=== PATIENT | male | born 1955 | race Two or more races ===

== ENCOUNTER 2025-10-06 13:49 | Observation (INO) | payer OTHER ==
[~2025-10-06] VITALS: Ht 172.7 cm; Wt 100.0 kg
[2025-10-06 13:54] VITALS: TEMP 98.1
[2025-10-06 15:33] LABS: Hematocrit 49.8 % (41.0-53.0); Hemoglobin 16.9 g/dL (13.5-17.5); Mean Corpuscular Hemoglobin 30.2 pg (28.0-32.0); Mean Corpuscular Volume 88.8 fL (80.0-100.0); Nucleated Red Blood Cells % 0.1 %
[2025-10-06 15:40] LABS: Chloride 98 mmol/L (98-107); Potassium 3.9 mmol/L (3.5-5.1)
[2025-10-06 15:41] LABS: Anion Gap 10 (5-15); Carbon Dioxide 22 mmol/L (20-31); Sodium 130 mmol/L (136-145)
[2025-10-06 15:42] LABS: Calcium 9.6 mg/dL (8.7-10.4)
[2025-10-06 15:47] LABS: BUN/Creatinine Ratio 9.5 (10.0-20.0); Blood Urea Nitrogen 7 mg/dL (9-23); Glucose 303 mg/dL (74-106)
[2025-10-06 15:59] VITALS: O2SAT 94
[2025-10-06 15:59] LABS: Urine Protein, UAD Negative (Negative)
[2025-10-06] MEDS: ONDANSETRON HCL 4 MG/2 ML VIAL IV ONE (15:59)
[2025-10-06] MEDS: MORPHINE SULFATE 4 MG/ML SYR/VIAL IV ONE (16:01)
[2025-10-06] MEDS: IOHEXOL 300 MG/ML 100ML BOTTLE IJ ONE (16:09)
--- NOTE | 2025-10-06 16:50 | DVH ---
Indication: L Testicular pain Technique: CT axial images of the abdomen and pelvis are obtained with intravenous contrast. Coronal and sagittal reformats were obtained. Radiation Dose Information: CTDI volume is 19 mGy. Dose-length product is 1139 mGy*cm Comparison: None FINDINGS: Lung bases demonstrate atelectasis. Adrenal glands, spleen, pancreas unremarkable. Hepatic steatosis. No CT evidence for cholelithiasis. No hydronephrosis. Stomach relatively nondistended. Small bowel loops are normal in caliber. Duodenal diverticulum. Colonic diverticular disease. Normal appendix. 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 Bladder partially distended. No free pelvic fluid. Prostate measures 5.8 cm transversely. No inguinal lymphadenopathy. Moderate bilateral sacroiliac degenerative joint disease. Moderate bilateral sacroiliac degenerative joint disease. Left scrotal region soft tissue stranding incompletely characterized IMPRESSION: Left scrotal region soft tissue stranding, incompletely characterized. Recommend scrotal ultrasound to further characterize given the history of left testicular pain. Colonic diverticular disease. Atherosclerotic disease. Other findings as described.
[2025-10-06 17:20] VITALS: BP 128/77; PULSE 89; RESP 16
--- NOTE | 2025-10-06 17:24 | ED.PDOC ---
General HPI Comments This is a pleasant 69-year-old male that presents with a atraumatic left-sided testicular pain. The patient reports he noticed the swelling about a week ago. Initially small, now it has grown significantly particularly last night and in his now causing severe pain. Patient describes it as "a big thing the side of my balls" in his unsure if it is a possible abscess or a cyst or something else. The pain is severe enough to impact his mobility making it difficult for him to ambulate at this time. He needs assistance from getting up and out of the bed due to the pain. Patient reports the pain is localized in his nonradiating. Patient denies any abdominal pain. Denies any dysuria urgency frequency hematuria. Able to have normal bowel movements. Denies any history of testicular cancer at this time Chief Complaint: Testicle Pain Time Seen by MD: 14:51 Reviewed notes: Nurses Notes, Medications, Allergies Allergies: Coded Allergies: Acetaminophen (Verified Allergy, Unknown, 10/06/25) Oxycodone (Verified Allergy, Unknown, 10/06/25) Information Source: Patient Mode of Arrival: Wheelchair Psychiatric: reports: depression All Other Systems: Reviewed and Negative (PER HPI) Physical Exam General Appearance: No Apparent Distress, Normal HEENT: Normal ENT Inspection, Pharynx Normal, TMs Normal Neck: Full Range of Motion, Non-Tender, Normal, Normal Inspection Respiratory: Chest Non-Tender, Lungs Clear, No Accessory Muscle Use, No Respiratory Distress, Normal Breath Sounds Cardiovascular: No Edema, No JVD, No Murmur, No Gallop, Normal Peripheral Pulses, Regular Rate/Rhythm Breast Exam: Deferred Gastrointestinal: No Organomegaly, Non Tender, No Pulsatile Mass, Normal Bowel Sounds, Soft Genitalia: Deferred Pelvic: Deferred Rectal: Deferred Extremities: No calf tenderness, Normal capillary refill, Normal inspection, Normal range of motion, Non-tender, No pedal edema Musculoskeletal : Apperance: Normal Neurologic: Alert, 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 Was a procedure done?: No Images 1 - Noticeable swelling the proximally 4 x 4 cm the left inguinal region. Mild yellow purulent discharge is noted. The area is tender to palpation. Unable to fully examined due to pain. No noticeable rashes. Penile area appears normal. No erythema discharge etc. Differential Diagnosis Kidney stone (Female): Other Urinary Problem (Male): Epididymitis, Prostatitis, Plelonephritis, Urethritis, Urinary Retention, Urolithiasis, UTI, Other X-Ray, Labs, Meds, VS Vital Signs Date Time Temp Pulse Resp B/P (MAP) Pulse Ox O2 Delivery O2 Flow Rate FiO2 10/06/25 16:01 90 16 138/79 10/06/25 15:59 90 16 138/79 (98) 94 10/06/25 13:54 98.1 100 18 157/72 96 98.1 Lab Test 10/06/25 15:48 10/06/25 15:15 Range/Units Urine Color Light-yellow Yellow Urine Clarity Clear Clear Urine pH 5.5 5.0-9.0 Urine Specific [place] 1.037 H 1.001-1.035 Urine Protein Negative Negative Urine Ketones Negative Negative Urine Blood Negative Negative /uL Urine Nitrite Negative Negative Urine Bilirubin Negative Negative Urine Urobilinogen Normal Negative mg/dL Urine Leukocyte Esterase Negative Negative /uL Urine RBC 1 0 - 3 /hpf Urine Microscopic WBC < 1 0-3 /HPF Urine Squamous Epithelial Cells None seen <5 /hpf Urine Bacteria None seen None Seen /hpf Urine Glucose 4+ H Normal mg/dL White Blood Count 18.4 H 4.4-10.8 10^3/uL Red Blood Count 5.60 4.5-5.90 10^6/uL Hemoglobin 16.9 13.5-17.5 g/dL Hematocrit 49.8 41.0-53.0 % Mean Corpuscular Volume 88.8 80.0-100.0 fL Mean Corpuscular Hemoglobin 30.2 28.0-32.0 pg Mean Corpuscular Hemoglobin Concent 34.0 32.0-36.0 g/dL Red Cell Distribution Width 14.7 H 11.8-14.3 % Platelet Count 293 140-450 10^3/uL Mean Platelet Volume 8.1 6.9-10.8 fL Neutrophils (%) (Auto) 78.3 37.0-80.0 % Lymphocytes (%) (Auto) 10.1 10.0-50.0 % Monocytes (%) (Auto) 10.8 0.0-12.0 % Eosinophils (%) (Auto) 0.2 0.0-7.0 % Basophils (%) (Auto) 0.6 0.0-2.0 % Neutrophils # (Auto) 14.4 H 1.6-8.6 10 ^3/uL Lymphocytes # (Auto) 1.9 0.4-5.4 10 ^3/uL Monocytes # (Auto) 2.0 H 0-1.3 10 ^3/uL Eosinophils # (Auto) 0 0-0.8 10 ^3/uL Basophils # (Auto) 0.1 0-0.2 10 ^3/uL Nucleated Red Blood Cells 0.1 % Erythrocyte Sedimentation Rate 22 H 0-20 mm/hr Sodium Level 130 L 136-145 mmol/L Potassium Level 3.9 3.5-5.1 mmol/L Chloride Level 98 98-107 mmol/L Carbon Dioxide Level 22 20-31 mmol/L Anion Gap 10 5-15 Blood Urea Nitrogen 7 L 9-23 mg/dL Creatinine 0.74 0.700-1.30 mg/dL Glomerular Filtration Rate Calc 99 >90 mL/min BUN/Creatinine Ratio 9.5 L 10.0-20.0 Serum Glucose 303 H 74-106 mg/dL Lactic Acid Level 2.0 0.4-2.0 mmol/L Calcium Level 9.6 8.7-10.4 mg/dL C-Reactive Protein High Sensitivity 7.98 H <1.0 mg/dL Current Medications Medications (Trade) Dose Ordered Sig/Carlos Route Start Time Stop Time Status Last Admin Morphine Sulfate 4 mg ONCE ONCE IV 10/06/25 15:00 10/06/25 15:01 DC 10/06/25 16:01 Ondansetron HCl (Zofran) 4 mg ONCE ONCE IV 10/06/25 16:00 10/06/25 16:01 DC 10/06/25 15:59 PATIENT: ESTEPHANIA ROBERTOT: [id number]: [id number] : 1955 LOC: ER ROOM / BED: / AGE / SEX: 69 / M ADM STATUS: REG ER SERVICE [id number] ORDERING PHYSICIAN: SANTOS DUONG NP PROCEDURE(s): ABPLIV - CT AB PEL WITH IV CON ONLY REASON: L Testicular pain ORDER NUMBER(s): [id number], ACCESSION NUMBER(s): [id number] Indication: L Testicular pain Technique: CT axial images of the abdomen and pelvis are obtained with intravenous contrast. Coronal and sagittal reformats were obtained. Radiation Dose Information: CTDI volume is 19 mGy. Dose-length product is 1139 mGy*cm Comparison: None FINDINGS: Lung bases demonstrate atelectasis. Adrenal glands, spleen, pancreas unremarkable. Hepatic steatosis. No CT evidence for cholelithiasis. No hydronephrosis. Stomach relatively nondistended. Small bowel loops are normal in caliber. Duodenal diverticulum. Colonic diverticular disease. Normal appendix. 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 Bladder partially distended. No free pelvic fluid. Prostate measures 5.8 cm transversely. No inguinal lymphadenopathy. Moderate bilateral sacroiliac degenerative joint disease. Moderate bilateral sacroiliac degenerative joint disease. Left scrotal region soft tissue stranding incompletely characterized IMPRESSION: Left scrotal region soft tissue stranding, incompletely characterized. Recommend scrotal ultrasound to further characterize given the history of left testicular pain. Colonic diverticular disease. Atherosclerotic disease. Other findings as described. ATED BY: CHRISTOPHE MEIER MD DICTATED DATE/TIME: 10/06/251651 SIGNED BY: CHRISTOPHE MEIER MD SIGNED DATE/TIME: 10/06/251651 CC: X-Ray, Labs, Meds, VS Comment Low suspicion for testicular torsion. We will get a scrotal ultrasound as differential includes epididymitis, varicocele, hydrocele. Differential typically includes testicular torsion epididymitis orchitis varicocele hernia neoplastic dramatic or intra-abdominal complaints such as referred pain from appendicitis or aortic catastrophe. Patient arrives alert and oriented, ABC's intact, afebrile, vital signs stable, saturating well in room air Peripheral IV insertion+ labs were ordered. CBC was ordered to exclude anemia, blood loss, or infection. BMP was ordered to exclude electrolyte abnormalities, renal failure, dehydration, hyperglycemia Urinalysis was ordered to rule out UTI or hematuria. Blood cultures, lactic acid were ordered Patient was given: Morphine and Zofran for pain control. Tolerated medications with no adverse reaction. CT showed: Left scrotal region soft tissue stranding, incompletely characterized. Recommend scrotal ultrasound to further characterize given the history of left testicular pain. Etiology at this time however patient's labs reveal elevated leukocytosis and Elevated CRP, elevated sed rate, serum glucose at 303., and sodium at 130 The patient was started on broad-spectrum antibiotics as we await for the ultrasound and the patient will be admitted for higher level of care The patient's workup reveals that the patient needs further evaluation and/or treatment for the above medical conditions. Patient verbalized understanding of the above and is awaiting further evaluation by the admitting service. = Time of 1ST Reevaluation: 17:16 Reevaluation 1ST: Unchanged Patient Education/Counseling: Diagnosis, Treatment Family Education/Counseling: Diagnosis, Treatment SEPSIS Sepsis Screen Date sepsis recognized/suspect: Oct 06, 2025 Time Sepsis recognized/suspect: 1356 Recent Procedure: No On Antibiotic Therapy: No Respiratory Rate >20: No Heart Rate >90: Yes Temp<36 C (96.8 F) or >38.3 C: No SBP <90 or MAP <65 mmHG: No New Acute Mental Status Change: No Is the patient on CPAP, BIPAP,: No Physician Orders Blood Culture (10/06/25 14:57) Heplock Iv (10/06/25 ) Notify Md If Map <65 Or Bp<90 (10/06/25 14:57) If Map<65 Start Vasopressor (10/06/25 14:57) Peripheral Saline Lock (10/06/25 15:25) Ct Ab Pel With Iv Con Only (10/06/25 15:25) Testicular Ultrasound (10/06/25 16:54) Vital Signs Date Time Temp Pulse Resp B/P (MAP) Pulse Ox O2 Delivery O2 Flow Rate FiO2 10/06/25 16:01 90 16 138/79 10/06/25 15:59 90 16 138/79 (98) 94 10/06/25 13:54 98.1 100 18 157/72 96 98.1 Laboratory Tests Test 10/06/25 15:15 Lactic Acid Level 2.0 mmol/L (0.4-2.0) White Blood Count 18.4 10^3/uL (4.4-10.8) H Medications Medications Dose Ordered Sig/Carlos Route Start Time Stop Time Status Last Admin Dose Admin Morphine Sulfate 4 mg ONCE ONCE IV 10/06/25 15:00 10/06/25 15:01 DC 10/06/25 16:01 Ondansetron HCl 4 mg ONCE ONCE IV 10/06/25 16:00 10/06/25 16:01 DC 10/06/25 15:59 Departure 1 Departure Time of Disposition: 17:23 Impression: Primary Impression: Testicle pain Qualified Codes: N50.812 - Left testicular pain Additional Impressions: Leukocytosis Qualified Codes: D72.829 - Elevated white blood cell count, unspecified Scrotum swelling Disposition: ADMITTED INPATIENT Condition: Serious Critical Care Note Critical Care Time?: No Stability Stability form required: No Heart Score Heart Score: Heart Score Response (Comments) Value History N/A 0 EKG N/A 0 Age N/A 0 Risk Factors N/A 0 Troponin N/A 0 Total 0 SANTOS DUONG NP Oct 06, 2025 17:24
--- NOTE | 2025-10-06 18:14 | DVH ---
ULTRASOUND OF SCROTUM AND CONTENTS. INDICATION: L testicular pain COMPARISON: None TECHNIQUE: Multiple real-time grayscale sonographic and color and duplex Doppler images of the scrotum and its contents were obtained. FINDINGS: The right testicle measures 3.9 x 2.0 x 2.7 cm. The left testicle measures 3.8 x 2.3 x 3.1 cm. Both testicles demonstrate homogeneous echotexture without evidence of focal lesions. Right and left epididymis appears slightly heterogeneous with a few small epididymal cysts. The vascularity is symmetric and normal. Subsequent color and duplex Doppler interrogation of the testes demonstrated symmetric normal vascular flow to both testicles. Few complex cystic appearing structures within the scrotal sac bilaterally, possibly hernias. IMPRESSION: No evidence for testicular torsion or epididymitis/ orchitis. Large debris containing structures within the scrotal sac bilaterally, possibly hernias. CT would better assess.
[2025-10-06] MEDS ORDERED: VANCOMYCIN 1GM/250ML KIT 250 ML IV ONE (20:45)
[2025-10-06] MEDS: SODIUM CHLORIDE 0.9% 1,000 ML IV SCH (20:45)
[2025-10-06] MEDS ORDERED: DEXTROSE (50%) 50ML SYRG IV PRN (20:45)
[2025-10-06] MEDS ORDERED: VANCOMYCIN PER PHARMACY 0 MG IV SCH (20:45)
[2025-10-06] MEDS ORDERED: VANCOMYCIN 1.25GM/250ML 250 ML IV SCH (21:00)
[2025-10-06] MEDS ORDERED: NITROGLYCERIN 0.4 MG SL TAB SL PRN (21:30)
[2025-10-06] MEDS ORDERED: ONDANSETRON HCL 4 MG/2 ML VIAL IV PRN (21:30)
[2025-10-06] MEDS ORDERED: MORPHINE SULFATE INJ 2 MG/ml SYRG IV PRN (21:30)
--- NOTE | 2025-10-06 22:09 | DVHHP ---
ADMIT DATE: 10/06/2025 CHIEF COMPLAINT: Complaining for left testicular pain. HISTORY OF PRESENT ILLNESS: This is a 69-year-old male with significant past medical history for diabetes mellitus type 2, essential hypertension and hyperlipidemia. We have a history of previous testicular infections, requiring lancing procedures back 5 years ago and 10 years ago. He presents with a new onset of left testicular swelling and pain for about a week now. The patient has been apparently experiencing worse swelling over the last week and causing him significant pain and drainage from the site. The patient says that the pain has gone so significant that he has had difficulties with ambulating with it causing him significant pain. The patient otherwise denies any urinary frequency, urgency, or burning sensation. He has had normal bowel movements. The patient denies any chest pain or shortness of breath. PAST MEDICAL HISTORY: Diabetes mellitus type 2, essential hypertension and hyperlipidemia. PAST SURGICAL HISTORY: He has had a tonsillectomy procedure, lancing procedure of his testicles 5 years ago and 10 years ago. SOCIAL HISTORY: He is a tobacco smoker about a pack a day for 56 years. Occasional marijuana use. No alcohol or other illicit drugs. MEDICATIONS AT HOME: Per medical reconciliation. MEDICATION ALLERGIES: OXYCODONE AND ACETAMINOPHEN. REVIEW OF SYSTEMS: A 10-point review of systems was covered with the patient and was negative with the exception to what was present in the history of present illness. PHYSICAL EXAMINATION: VITAL SIGNS: Temp 98.1, pulse rate of 100, respiratory rate of 18, blood pressure 157/72, pulse oximetry about 96% on room air. GENERAL: He seems to be alert and oriented x4, no acute distress male, sitting up in a chair. HEENT: Normocephalic, atraumatic. Extraocular muscles are intact. Pupils are equally round and reactive to light and accommodations. Mucous membranes look slightly dry. CARDIOVASCULAR: S1, S2 positive. Regular rate and rhythm. No rubs, gallops, or murmurs. LUNGS: Clear to auscultation bilaterally. No wheezing, rhonchi, or rales. ABDOMEN: Soft, nontender, and nondistended. Positive bowel sounds. No guarding or rebound. GENITOURINARY: The patient does have significant erythema and swelling of the left testicular region kind of going down. He has a notable swelling of about 4 x 4 cm in the left inguinal region. Yellow purulent drainage is seen from the site. Area is tender and warm to touch. The patient does have significant tenderness again on examination. Penile area appears to be normal. EXTREMITIES: No lower extremity edema, clubbing, or cyanosis. NEUROLOGIC: No focal deficits. Cranial nerve testing 2-12 overall seems to be intact. LABORATORY WORKUP: Laboratory workup shows a white count of 18,000, H and H of 16.4/49.8, platelet count 293,000. Sodium of 130, potassium 3.9, chloride 98, carbon dioxide 22, BUN 7, creatinine 0.74, serum glucose of 303, lactic acid 3.0, C-reactive protein of 7.98. UA shows negative nitrites, negative leukocyte esterase, 1 wbc's. IMAGING: Testicular ultrasound shows no evidence of testicular torsion, epididymitis, orchitis, large debris-containing structure within the scrotal sac bilaterally, possibly representing complex cysts versus possible hernias. CT would be better reassess. CT abdomen and pelvis without contrast. Impression: The scrotal region soft tissue stranding incompletely characterized. Recommend scrotal ultrasound to further characterize given the history of left testicular pain, colonic diverticular disease, atherosclerotic disease, other findings as described above. DIAGNOSES: * Left testicular abscess. * Uncontrolled diabetes mellitus type 2 with hyperglycemia. SECONDARY DIAGNOSES: * Essential hypertension. * Hyperlipidemia. PLAN: The patient will be admitted [facility] under observation status. Consultation with Urology, Dr. Isaiah Calderón has been requested. The patient will be maintained n.p.o. at this point in time. The patient will be placed on broad-spectrum antibiotics with vancomycin 1 g IV per pharmacy to dose adjust. The patient will also be placed on Zosyn 3.375 g IV q. 6 hours. The patient has been ordered pain control with morphine 2 mg IV p.r.n. q. 4 for [id number] pain. Zofran 4 mg IV p.r.n. for nausea and vomiting. The patient to be placed on Accu-Cheks q. 6 hours at moderate dose sliding scale regular insulin. We will give IV hydration with normal saline 0.9% at 120 mL an hour continuously. The patient is to have SCDs to bilateral lower extremities for DVT prophylaxis. The patient's home blood pressure medications and cholesterol medications will be held at this point in time. The patient is a full code. DVT prophylaxis with SCDs. Further recommendations will depend on official progression. William Corrigan MD LM/KIAH TID: [id number] RECEIPT: [id number]
[2025-10-07] MEDS ORDERED: PIPERACILLIN-TAZOB 3.375GM 100 ML IV SCH
[2025-10-07] MEDS ORDERED: InsuLIN REG 1unit/0.01ml Soln (100units/ml) SC SCH
[2025-10-07] MEDS ORDERED: ACCU-CHEK COMFORT CURVE STRIP VI SCH
== END 2025-10-06 21:45 | disposition left against medical advice (07) ==
LOC: ER 13:49 → OVERFLOW 21:16 → INTOOBSV 21:16 → ER 21:47 → OVERFLOW 21:47
PROVIDERS: ADMIT Hospitalist; ATTEND Hospitalist
DX: N45.4 Abscess of epididymis or testis (principal); E11.65 Type 2 diabetes mellitus with hyperglycemia; I10 Essential (primary) hypertension; E78.5 Hyperlipidemia, unspecified; D72.829 Elevated white blood cell count, unspecified; K57.30 Diverticulosis of large intestine without perforation or abscess without bleeding; Z87.891 Personal history of nicotine dependence; Z79.899 Other long term (current) drug therapy; Z98.890 Other specified postprocedural states
CPT/HCPCS: 36415; 74177; 76870; 80048; 81001; 83605; 85025; 85652; 86141; 87040; 96365; 96375; 99285; G0378; J0696; J2270; J2405; Q9967